=== PATIENT | male | born 1995 ===

== ENCOUNTER 2020-11-04 15:55 | Emergency (ER) | payer SELFPAY ==
--- NOTE | 2020-11-06 10:33 | Electrocardiograph Report ---
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
== END 2020-11-04 16:11 | disposition left against medical advice (07) ==
LOC: ED 15:55
DX: R07.89 Other chest pain (principal); Z53.21 Procedure and treatment not carried out due to patient leaving prior to being seen by health care provider
CPT/HCPCS: 93005